=== PATIENT | male | born 1950 | race American Indian/Alaskan Native ===

== ENCOUNTER 2016-05-20 03:34 | Emergency (ER) | payer BC ==
[2016-05-20 04:24] VITALS: BP 151/90
[2016-05-20] MEDS ORDERED: DECADRON IM STA (06:31)
[2016-05-20] MEDS ORDERED: TORADOL IM ONE (06:31)
--- NOTE | 2016-05-20 06:31 | Emergency Department Report ---
Upper Extremity - HPI Chief Complaint: Extremity Injury, Upper Stated Complaint: ARM AND SHOULDER PAIN Time Seen by Provider: 05/20/16 06:26 Upper Extremity: Left Shoulder (pain and stiffness), Left Arm (pain ) Occurred When: 1 Day Mechanism: Unsure Severity: mild Symptoms: Yes Pain with Movement, No Deformity, No Limited Range of Movement, No Numbness, No Weakness, No Swelling, No Bruising/Ecchymosis, No Laceration or Abrasion Other History: Patient here reports that he was working in the yard and his left arm and shoulder became severe. He said he's had this in the past and he saw and he treated him with steroid shot and Toradol. Patient denies any trauma. Denies any chest pain or shortness of breath. No [id number] medication taken. Patient said the pain started after he yard in that he went to sleep and woke up with pain into his left shoulder. ED Review of Systems ROS: Stated complaint: ARM AND SHOULDER PAIN Other details as noted in HPI Comment: All other systems reviewed and negative Constitutional: denies: chills, fever Respiratory: no symptoms reported Cardiovascular: denies: chest pain, palpitations, edema, syncope Gastrointestinal: denies: nausea, vomiting Musculoskeletal: arthralgia. denies: back pain Skin: denies: rash Neurological: denies: headache, numbness, paresthesias, confusion, abnormal gait , vertigo ED Past Medical Hx - Past Medical History Previous Medical History?: Yes Hx Diabetes: Yes Additional medical history: gout - Surgical History Past Surgical History?: Yes Additional Surgical History: back surgery x2 - Family History Family history: diabetes, hypertension - Social History Smoking Status: Never Smoker Substance Use Type: None - Medications Home Medications: Home Medications Medication Instructions Recorded Confirmed Last Taken Type Indomethacin 50 mg PO Q8H #30 capsule 02/26/16 Unknown Rx traMADol [Ultram] 50 mg PO Q6HR PRN #20 tablet 05/20/16 Unknown Rx Upper Extremity Exam - Exam General: Vital signs noted. No distress. Alert and acting appropriately. This is a 65-year-old male well-nourished well-developed in no acute distress. Head and Torso: No HEENT Abnormality, No Neck Tenderness, No Chest/Lungs Abnormality, No Abdominal Tenderness, No Back Tenderness Shoulder Exam: Yes Normal Range of Motion in Shoulder (it's painful to move his left shoulder), No Shoulder Tenderness, No Clavicle Tenderness, No Shoulder Deformity, No AC Joint Tenderness Arm Exam: No Arm/Humerus Tenderness, No Arm Deformity Elbow: Yes Normal Range of Motion in Elbow, No Elbow Tenderness, No Elbow Deformity Forearm: No Forearm Tenderness, No Forearm Deformity, No Pain with Pronation, No Pain with Supination Wrist: Yes Normal ROM in Wrist, No Wrist Tenderness, No Wrist Deformity, No Snuffbox Tenderness, No Pain with Axial Thumb Compression Hand: Yes Normal ROM in Digit(s), No Hand Tenderness, No Hand Deformity, No Digit Tenderness, No Digit(s) Deformity, No Tendon Dysfunction CMS Exam: Yes Normal Distal Pulses, Yes Normal Capillary Refill, Yes Normal Distal Sensation, No Broken Skin ED Course Vital Signs 05/20/16 03:45 Temperature 98.1 F Pulse Rate 79 Respiratory 18 Rate Blood Pressure 151/90 [Right] O2 Sat by Pulse 100 Oximetry - Reevaluation(s) Reevaluation #1: 05/20/16 06:54 Patient was given Toradol 30 mg IM and Decadron 10 mg IM with relief of pain. ED Medical Decision Making - Medical Decision Making ED course: Patient presents to emergency room with left shoulder pain after working in the yard. He said similar incident and was evaluated. Patient was given Toradol 30 mg IM and Decadron 10 mg IM and forceps relief of pain. I discussed the patient that he needs to follow-up with orthopedic doctor to get MRI to rule out rotator cuff injury.. Patient with good color, movement, sensation in temperature to extremities. No joint deformities or erythema. Chin discharged home with prescription for Ultram which she is taken before for similar problem. Critical care attestation.: If time is entered above; I have spent that time in minutes in the direct care of this critically ill patient, excluding procedure time. ED Disposition Clinical Impression: Arthralgia of left shoulder region Disposition: DISCHARGED TO HOME OR SELFCARE Is pt being admited?: No Does the pt Need Aspirin: No Condition: Stable Instructions: Arthralgia (ED) Additional Instructions: Patient distress affected area for 72 hours. Orthopedic doctor in 2-3 days for reevaluation because he may need an MRI. Prescriptions: traMADol [Ultram] 50 mg PO Q6HR PRN #20 tablet PRN Reason: Pain Referrals: USHA MICHELLE MD [Staff Physician] - 2-3 Days PRIMARY CARE, [Primary Care Provider] - 2-3 Days Forms: Work/School Release Form(ED)
== END 2016-05-20 07:03 | disposition home or self-care (01) ==
LOC: ED 03:34
DX: M25.512 Pain in left shoulder (principal); E11.9 Type 2 diabetes mellitus without complications; M10.9 Gout, unspecified
CPT/HCPCS: 96372; 99282; J1100; J1885

== ENCOUNTER 2016-06-16 06:59 | Outpatient (CLI) | payer BC ==
--- NOTE | 2016-06-16 09:20 | XRay Report ---
Lumbar spine 4 views: History: Low back pain. Findings: Normal height of vertebral bodies. Space and device at L3-L4 interspace. Decrease in height of L4-L5 and L5-S1 interspace. Sclerotic adjacent articular surfaces with peripheral osteophytes suggestive severe degenerative changes. No fracture. Calcified abdominal aorta without aneurysm. Impression: Degenerative lumbar spine.
== END 2016-06-16 07:00 | disposition home or self-care (01) ==
LOC: XRAY 06:59
PROVIDERS: ATTEND Internal Medicine
DX: M47.896 Other spondylosis, lumbar region (principal); M25.78 Osteophyte, vertebrae
CPT/HCPCS: 72110

== ENCOUNTER 2018-06-13 12:46 | Emergency (ER) | payer BC ==
--- NOTE | 2018-06-13 12:58 | Emergency Department Report ---
Blank Doc - Documentation Documentation: This is a 67-year-old male that presents with HTN. Stated has been placed on new medications with b/p worsening. Denies any symptoms. This initial assessment/diagnostic orders/clinical plan/treatment(s) is/are subject to change based on patient's health status, clinical progression and re- assessment by fellow clinical providers in the ED. Further treatment and workup at subsequent clinical providers discretion. Patient/guardians urged not to elope from the ED as their condition may be serious if not clinically assessed and managed. Initial orders include: 1- Patient sent to [facility] for further evaluation and treatment
[2018-06-13 12:59] VITALS: BP 185/101
== END 2018-06-13 13:00 | disposition left against medical advice (07) ==
LOC: ED 12:46
DX: I10 Essential (primary) hypertension (principal); Z53.21 Procedure and treatment not carried out due to patient leaving prior to being seen by health care provider

== ENCOUNTER 2019-01-31 01:37 | Emergency (ER) | payer BC ==
--- NOTE | 2019-01-31 03:14 | Emergency Department Report ---
ED General Adult HPI - General Chief complaint: High BP Stated complaint: BP Time Seen by Provider: 01/31/19 02:59 Source: patient Mode of arrival: Ambulatory Limitations: No Limitations - History of Present Illness Initial comments: Patient is a 68-year-old male up since emergency room with complaints of elevated blood pressure. Patient states his blood pressure at home was 190/94. Patient's blood pressure in triage today was 209/113. Patient denies headache. Patient denies blurry vision. Patient denies chest pain. Patient denies shortness of breath. Patient denies missing medications. Patient states he takes clonidine 0.2 mg twice a day, losartan 100/25 daily, and Coreg 25 mg twice a day. Patient states his blood pressure is normally less than 150. Patient denies increased salt intake. Patient states he takes in enough water. pt denies kidney disease. Patient states he had his labs checked 4 days ago and were normal -: Sudden Consistency: constant Improves with: medication, rest Worsens with: none Associated Symptoms: denies other symptoms. denies: confusion, chest pain, cough, diaphoresis, fever/chills, headaches, loss of appetite, malaise, nausea/vomiting, rash, seizure, shortness of breath, syncope, weakness Treatments Prior to Arrival: none - Related Data Previous Rx's Medication Instructions Recorded Last Taken Type Indomethacin 50 mg PO Q8H #30 capsule 02/26/16 Unknown Rx traMADoL [Ultram] 50 mg PO Q6HR PRN #20 tablet 05/20/16 Unknown Rx Amlodipine Besylate [Norvasc] 5 mg PO DAILY #15 tablet 01/31/19 Unknown Rx Allergies Allergy/AdvReac Type Severity Reaction Status Date / Time No Known Allergies Allergy Verified 07/05/18 20:04 ED Review of Systems ROS: Stated complaint: BP Other details as noted in HPI Constitutional: denies: chills, fever Eyes: denies: eye pain, eye discharge, vision change ENT: denies: ear pain, throat pain Respiratory: denies: cough, shortness of breath, wheezing Cardiovascular: denies: chest pain, palpitations Endocrine: no symptoms reported Gastrointestinal: denies: abdominal pain, nausea, diarrhea Genitourinary: denies: urgency, dysuria Musculoskeletal: denies: back pain, joint swelling, arthralgia Skin: denies: rash, lesions Neurological: denies: headache, weakness, paresthesias Psychiatric: denies: anxiety, depression Hematological/Lymphatic: denies: easy bleeding, easy bruising ED Past Medical Hx - Past Medical History Previous Medical History?: Yes Hx Hypertension: Yes Hx Diabetes: Yes Hx Renal Disease: No Additional medical history: gout, hyperlipidemia - Surgical History Past Surgical History?: Yes Additional Surgical History: back surgery x2 - Family History Family history: no significant - Social History Smoking Status: Never Smoker Substance Use Type: None - Medications Home Medications: Home Medications Medication Instructions Recorded Confirmed Last Taken Type Indomethacin 50 mg PO Q8H #30 capsule 02/26/16 Unknown Rx traMADoL [Ultram] 50 mg PO Q6HR PRN #20 tablet 05/20/16 Unknown Rx Amlodipine Besylate [Norvasc] 5 mg PO DAILY #15 tablet 01/31/19 Unknown Rx ED Physical Exam - General Limitations: No Limitations General appearance: alert, in no apparent distress - Head Head exam: Present: atraumatic, normocephalic - Eye Eye exam: Present: normal appearance - ENT ENT exam: Present: mucous membranes moist - Neck Neck exam: Present: normal inspection - Respiratory Respiratory exam: Present: normal lung sounds bilaterally. Absent: respiratory distress, wheezes, rales - Cardiovascular Cardiovascular Exam: Present: regular rate, normal rhythm. Absent: systolic murmur, diastolic murmur, rubs, gallop - GI/Abdominal GI/Abdominal exam: Present: soft, normal bowel sounds. Absent: distended, tenderness, guarding - Rectal Rectal exam: Present: deferred - Extremities Exam Extremities exam: Present: normal inspection - Back Exam Back exam: Present: normal inspection - Neurological Exam Neurological exam: Present: alert, oriented X3 - Psychiatric Psychiatric exam: Present: normal affect, normal mood - Skin Skin exam: Present: warm, dry, intact, normal color. Absent: rash ED Course Vital Signs 01/31/19 01/31/19 01/31/19 01:43 02:45 03:00 Temperature 98.5 F 98.5 F Pulse Rate 71 81 Respiratory 20 16 Rate Blood Pressure 209/113 176/95 Blood Pressure 193/105 [Left] O2 Sat by Pulse 98 99 98 Oximetry 01/31/19 03:30 Temperature Pulse Rate Respiratory Rate Blood Pressure 168/92 Blood Pressure [Left] O2 Sat by Pulse 99 Oximetry - Reevaluation(s) Reevaluation #1: I discussed clinical findings patient. Patient's blood pressure checked multiple times and is still elevated. Patient will be given a prescription for Norvasc. Patient is not quire further evaluation ER. Patient given discharge instructions. Patient voiced understanding of discharge instructions. Patient agrees with plan of care. 01/31/19 03:20 ED Medical Decision Making - Medical Decision Making Patient is a 68-year-old male that presents emergency room with complaints of elevated blood pressure. Patient's blood pressure initially considered a hypertensive emergency. Patient blood pressure improved with rest. Patient given a new prescription for Norvasc. Patient to continue OTHER medications. 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 - Differential Diagnosis high blood pressure. Increase salt intake. Critical care attestation.: If time is entered above; I have spent that time in minutes in the direct care of this critically ill patient, excluding procedure time. ED Disposition Clinical Impression: Essential hypertension, Hypertensive urgency Disposition: DC-01 TO HOME OR SELFCARE Is pt being admited?: No Does the pt Need Aspirin: No Condition: Stable Instructions: Heart Healthy Diet (ED), How to Take a Blood Pressure (ED), DASH Eating Plan (ED), Low Sodium Diet (ED), Hypertensive Crisis (ED), Hypertension (ED) Additional Instructions: pt To follow-up with primary care in 2-3 days. Patient to return to ER if condition worsens. Patient take meds as directed. Patient to continue all other medications as directed by his other physicians. Patient to monitor blood pressure and keep a blood pressure log. Prescriptions: Amlodipine Besylate [Norvasc] 5 mg PO DAILY #15 tablet Referrals: PRIMARY CARE, [Primary Care Provider] - 3-5 Days Time of Disposition: 03:47
[2019-01-31 04:04] VITALS: BP 168/92
== END 2019-01-31 04:00 | disposition home or self-care (01) ==
LOC: ED 01:37
DX: I16.0 Hypertensive urgency (principal); I10 Essential (primary) hypertension; E11.9 Type 2 diabetes mellitus without complications; E78.5 Hyperlipidemia, unspecified
CPT/HCPCS: 99281

== ENCOUNTER 2019-10-17 03:14 | Emergency (ER) | payer BC ==
[2019-10-17] MEDS ORDERED: cloNIDine 0.2 MG TAB PO ONE (04:17)
--- NOTE | 2019-10-17 04:17 | Emergency Department Report ---
ED General Adult HPI - General Chief complaint: High BP Stated complaint: HIGH BP PUI?: No Time Seen by Provider: 10/17/19 04:02 Source: patient Mode of arrival: Ambulatory Limitations: No Limitations - History of Present Illness Initial comments: Patient is a 69-year-old male that presents emergency room with complaints of elevated blood pressure. Patient states he missed a dose of his blood pressure medication his blood pressure shot up. Patient states his blood pressure is normally 130/80. Patient states he is currently taking carvedilol, clonidine and Diovan. Patient states he is compliant with his medications. Patient denies headache. Patient denies blurry vision. Patient was just concerned about the blood pressure readings. Patient denies chest pain. Patient denies shortness of breath. Patient denies dizziness. Patient denies lightheadedness. Patient denies loss of consciousness. Patient denies syncope. Patient denies recent travel. Patient denies recent international travel. Patient denies exposure to the novel coronavirus. Patient denies sick contacts. Patient denies fever and chills. Patient denies cough. Patient denies diarrhea. Patient denies coming in contact with anybody with symptoms of the novel coronavirus. -: Sudden Consistency: constant Improves with: medication, rest Worsens with: movement Associated Symptoms: denies other symptoms. denies: confusion, chest pain, cough, diaphoresis, fever/chills, headaches, loss of appetite, malaise, nausea/vomiting, rash, seizure, shortness of breath, syncope, weakness Treatments Prior to Arrival: none - Related Data Previous Rx's Medication Instructions Recorded Last Taken Type Indomethacin 50 mg PO Q8H #30 capsule 02/26/16 Unknown Rx traMADoL [Ultram] 50 mg PO Q6HR PRN #20 tablet 05/20/16 Unknown Rx Amlodipine Besylate [Norvasc] 5 mg PO DAILY #15 tablet 01/31/19 Unknown Rx Allergies Allergy/AdvReac Type Severity Reaction Status Date / Time No Known Allergies Allergy Verified 07/05/18 20:04 ED Review of Systems ROS: Stated complaint: HIGH BP Other details as noted in HPI Constitutional: denies: chills, fever Eyes: denies: eye pain, eye discharge, vision change ENT: denies: ear pain, throat pain Respiratory: denies: cough, shortness of breath, wheezing Cardiovascular: denies: chest pain, palpitations Endocrine: no symptoms reported Gastrointestinal: denies: abdominal pain, nausea, diarrhea Genitourinary: denies: urgency, dysuria Musculoskeletal: denies: back pain, joint swelling, arthralgia Skin: denies: rash, lesions Neurological: denies: headache, weakness, paresthesias Psychiatric: denies: anxiety, depression Hematological/Lymphatic: denies: easy bleeding, easy bruising ED Past Medical Hx - Past Medical History Previous Medical History?: Yes Hx Hypertension: Yes Hx Diabetes: Yes Hx Renal Disease: No Additional medical history: gout, hyperlipidemia - Surgical History Past Surgical History?: Yes Additional Surgical History: back surgery x2 - Family History Family history: no significant - Social History Smoking Status: Never Smoker Substance Use Type: None - Medications Home Medications: Home Medications Medication Instructions Recorded Confirmed Last Taken Type Indomethacin 50 mg PO Q8H #30 capsule 02/26/16 Unknown Rx traMADoL [Ultram] 50 mg PO Q6HR PRN #20 tablet 05/20/16 Unknown Rx Amlodipine Besylate [Norvasc] 5 mg PO DAILY #15 tablet 01/31/19 Unknown Rx ED Physical Exam - General Limitations: No Limitations General appearance: alert, in no apparent distress - Head Head exam: Present: atraumatic, normocephalic - Eye Eye exam: Present: normal appearance, PERRL Pupils: Present: normal accommodation - ENT ENT exam: Present: mucous membranes moist - Neck Neck exam: Present: normal inspection - Respiratory Respiratory exam: Present: normal lung sounds bilaterally. Absent: respiratory distress - Cardiovascular Cardiovascular Exam: Present: regular rate, normal rhythm. Absent: systolic murmur, diastolic murmur, rubs, gallop - GI/Abdominal GI/Abdominal exam: Present: soft, normal bowel sounds - Rectal Rectal exam: Present: deferred - Extremities Exam Extremities exam: Present: normal inspection - Back Exam Back exam: Present: normal inspection - Neurological Exam Neurological exam: Present: alert, oriented X3 - Psychiatric Psychiatric exam: Present: normal affect, normal mood - Skin Skin exam: Present: warm, dry, intact, normal color. Absent: rash ED Course Vital Signs 10/17/19 10/17/19 03:19 04:24 Temperature 98.0 F 98.2 F Pulse Rate 81 79 Respiratory 20 15 Rate Blood Pressure 204/101 197/98 Blood Pressure 197/98 [Left] O2 Sat by Pulse 98 100 Oximetry - Reevaluation(s) Reevaluation #1: Initial valuation done. Patient's blood pressure is currently 197/97. Patient will be given clonidine 0.2 mg. 10/17/19 04:17 Reevaluation #2: Patient's current blood pressure is 153/87. Patient will be discharged home. I discussed all results and clinical findings with patient. I discussed plan of care with patient. Patient agrees with plan of care. Patient is stable for discharge. Patient will be discharged home. Patient given discharge instructions. Patient voiced understanding of discharge instructions. 10/17/19 04:40 ED Medical Decision Making - Medical Decision Making Patient is a 69-year-old male that presents emergency room with elevated blood pressure. Patient missed a dose of his carvedilol and his blood pressure shot up. Patient came to the emergency room because he was nervous about how high his blood pressure went up to. Patient's blood pressure upon arrival was 200 systolic. Patient blood pressure monitor. Patient's blood pressure is 197/97 patient was given patient's blood pressure improved. Patient's blood pressure is more tolerable and the patient was discharged home. Patient not require any further investigation or further emergency medical services. Patient stable for discharge. Patient discharged home. - Differential Diagnosis Missed dose, hypertension, increased salt intake. Critical care attestation.: If time is entered above; I have spent that time in minutes in the direct care of this critically ill patient, excluding procedure time. ED Disposition Clinical Impression: Hypertension Qualifiers: Hypertension type: essential hypertension Qualified Code(s): I10 - Essential (primary) hypertension Disposition: DC-01 TO HOME OR SELFCARE Is pt being admited?: No Does the pt Need Aspirin: No Condition: Stable Instructions: Heart Healthy Diet (ED), How to Take a Blood Pressure (ED), DASH Eating Plan (ED), Low Sodium Diet (ED), Hypertension (ED) Additional Instructions: Patient to follow-up with primary care in 2 to 3 days. Patient to follow-up with cardiology in 2 to 3 days. Patient to rest. Patient to increase water. Patient to avoid strenuous exercise or heavy lifting until cleared by cardiac specialist. Patient to keep a blood pressure log. Patient to monitor blood pressure at home. Patient to eat a low-salt, heart healthy diet. Patient to continue medications. Patient to return to the ER if condition worsens, changes or new symptoms arise. Referrals: PRIMARY CARE, [Primary Care Provider] - 2-3 Days Time of Disposition: 04:35
[2019-10-17 05:09] VITALS: BP 151/85
== END 2019-10-17 05:09 | disposition home or self-care (01) ==
LOC: ED 03:14
DX: I10 Essential (primary) hypertension (principal); E11.9 Type 2 diabetes mellitus without complications; Z79.899 Other long term (current) drug therapy
CPT/HCPCS: 99282

== ENCOUNTER 2020-12-01 18:42 | Emergency (ER) | payer BC ==
[2020-12-01] MEDS ORDERED: hydrALAZINE 25 MG TAB PO ONE (20:44)
--- NOTE | 2020-12-01 22:10 | Emergency Department Report ---
ED General Adult HPI - General Chief complaint: High BP Stated complaint: HIGH BLOOD PRESSURE Source: patient Mode of arrival: Ambulatory Limitations: No Limitations - History of Present Illness Initial comments: Patient is a 70-year-old -[place] male with a history of hypertension, hyperlipidemia, gout and nga-[id number]-qahofcbae diabetes who presented to the ED with elevated blood pressure. Patient states that he has previously taken losartan-HCTZ 325 mg - 25 mg and that his blood pressure is always been well controlled until about 2 weeks ago when his medications were changed. Patient states that since new medications were added, including clonidine 0.3 mg patch and nifedipine 30 mg XR, his blood pressures continue to be in the 190s systolic, and that it got worse in the last 2 days. Patient states that the symptoms have worsened in the last 3 days. Patient denies chest pain, shortness of breath, dizziness, nausea, vomiting, headache, palpitations, abdominal pain, neck pain, head injury, fall or numbness and tingling or weakness of upper and lower extremities bilaterally and syncope. MD Complaint: Elevated blood, new blood pressure medication changes -: Sudden, days(s) (3) Location: head Radiation: non-radiation Quality: dull Consistency: constant Improves with: none Worsens with: none Associated Symptoms: denies other symptoms. denies: confusion, chest pain, cough, diaphoresis, fever/chills, headaches, loss of appetite, malaise, nausea/vomiting, rash, shortness of breath, syncope, weakness Treatments Prior to Arrival: none - Related Data Previous Rx's Medication Instructions Recorded Last Taken Type Indomethacin 50 mg PO Q8H #30 capsule 02/26/16 Unknown Rx traMADoL [Ultram] 50 mg PO Q6HR PRN #20 tablet 05/20/16 Unknown Rx Amlodipine Besylate [Norvasc] 5 mg PO DAILY #15 tablet 01/31/19 Unknown Rx Allergies Allergy/AdvReac Type Severity Reaction Status Date / Time No Known Allergies Allergy Verified 07/05/18 20:04 ED Review of Systems ROS: Stated complaint: HIGH BLOOD PRESSURE Other details as noted in HPI Constitutional: denies: chills, fever Eyes: denies: eye pain, eye discharge, vision change ENT: denies: ear pain, throat pain, dental pain, hearing loss, congestion Respiratory: denies: cough, shortness of breath, wheezing Cardiovascular: denies: chest pain, palpitations Endocrine: no symptoms reported Gastrointestinal: denies: abdominal pain, nausea, vomiting, diarrhea, hematemesis, hematochezia Genitourinary: denies: urgency, dysuria Musculoskeletal: denies: back pain, joint swelling, arthralgia Skin: denies: rash, lesions Neurological: denies: headache, weakness, paresthesias Psychiatric: denies: anxiety, depression Hematological/Lymphatic: denies: easy bleeding, easy bruising ED Past Medical Hx - Past Medical History Previous Medical History?: Yes Hx Hypertension: Yes Hx Diabetes: Yes Hx Renal Disease: No Additional medical history: gout, hyperlipidemia - Surgical History Past Surgical History?: Yes Additional Surgical History: back surgery x2 - Social History Smoking Status: Never Smoker Substance Use Type: None - Medications Home Medications: Home Medications Medication Instructions Recorded Confirmed Last Taken Type Indomethacin 50 mg PO Q8H #30 capsule 02/26/16 Unknown Rx traMADoL [Ultram] 50 mg PO Q6HR PRN #20 tablet 05/20/16 Unknown Rx Amlodipine Besylate [Norvasc] 5 mg PO DAILY #15 tablet 01/31/19 Unknown Rx ED Physical Exam - General Limitations: No Limitations General appearance: alert, in no apparent distress - Head Head exam: Present: atraumatic, normocephalic, normal inspection - Eye Eye exam: Present: normal appearance, PERRL, EOMI Pupils: Present: normal accommodation - ENT ENT exam: Present: normal exam, normal orophraynx, mucous membranes moist, TM's normal bilaterally, normal external ear exam - Neck Neck exam: Present: normal inspection, full ROM - Respiratory Respiratory exam: Present: normal lung sounds bilaterally. Absent: respiratory distress, wheezes, rales, rhonchi, chest wall tenderness, accessory muscle use, decreased breath sounds, prolonged expiratory - Cardiovascular Cardiovascular Exam: Present: regular rate, normal rhythm, normal heart sounds. Absent: systolic murmur, diastolic murmur, rubs, gallop - GI/Abdominal GI/Abdominal exam: Present: soft, normal bowel sounds. Absent: tenderness, guarding, rebound, rigid, hyperactive bowel sounds, hypoactive bowel sounds, organomegaly, mass - Extremities Exam Extremities exam: Present: normal inspection, full ROM, normal capillary refill - Back Exam Back exam: Present: normal inspection, full ROM. Absent: tenderness, CVA tenderness (R), CVA tenderness (L), muscle spasm, paraspinal tenderness - Neurological Exam Neurological exam: Present: alert, oriented X3, CN II-XII intact, normal gait, reflexes normal - Psychiatric Psychiatric exam: Present: normal affect, normal mood - Skin Skin exam: Present: warm, dry, intact, normal color. Absent: rash ED Course Vital Signs 12/01/20 12/01/20 12/01/20 19:04 20:18 21:00 Temperature 98.1 F Pulse Rate 88 Respiratory 18 Rate Blood Pressure 199/106 224/116 Blood Pressure 227/128 [Right] O2 Sat by Pulse 98 Oximetry 12/01/20 12/01/20 12/01/20 21:03 21:19 21:35 Temperature Pulse Rate 81 Respiratory Rate Blood Pressure 224/116 186/101 192/93 Blood Pressure [Right] O2 Sat by Pulse Oximetry 12/01/20 12/01/20 21:50 22:05 Temperature Pulse Rate Respiratory Rate Blood Pressure 176/97 183/87 Blood Pressure [Right] O2 Sat by Pulse Oximetry ED Medical Decision Making - Medical Decision Making This is a 70-year-old -[place] male with a history of hypertension, hyperlipidemia, gout and [id number]-ckpewdzla diabetes who presented to the ED with elevated blood pressure. Patient states that he has previously taken losartan-HCTZ 325 mg - 25 mg and that his blood pressure is always been well controlled until about 2 weeks ago when his medications were changed. Patient states that since new medications were added, including clonidine 0.3 mg patch and nifedipine 30 mg XR, his blood pressures continue to be in the 190s systolic, and that it got worse in the last 2 days. Patient states that the symptoms have worsened in the last 3 days. In the ED, patient is alert and oriented by age and is not in any distress. Patient is however hypertensive in triage, anxious and afebrile. Patient was treated in the ED for hypertension with hydralazine 50 mg p.o. x1. On reevaluation, hypertension improved and the patient will discharge home and advised to follow-up with his primary care physician in 3 to 5 days for reevaluation or return to the ED immediately if symptoms get worse. - Differential Diagnosis Uncontrolled hypertension; anxiety Critical care attestation.: If time is entered above; I have spent that time in minutes in the direct care of this critically ill patient, excluding procedure time. ED Disposition Clinical Impression: Uncontrolled stage 2 hypertension Disposition: 01 HOME / SELF CARE / HOMELESS Is pt being admited?: No Does the pt Need Aspirin: No Condition: Stable Instructions: Hypertension, Adult, [id number], Hypertension (ED) Additional Instructions: Follow-up with your primary care physician in the next 24 to 48 hours for further evaluation. Return to the ED immediately if symptoms get worse. Referrals: MARIANO WILD MD [Staff Physician] - 3-5 Days Time of Disposition: 22:25 Print Language: SPANISH
[2020-12-02 01:28] VITALS: BP 136/72
== END 2020-12-01 23:35 | disposition home or self-care (01) ==
LOC: ED 18:42
DX: I10 Essential (primary) hypertension (principal); E11.8 Type 2 diabetes mellitus with unspecified complications; M10.9 Gout, unspecified; E78.5 Hyperlipidemia, unspecified; Z98.890 Other specified postprocedural states
CPT/HCPCS: 99282

== ENCOUNTER 2021-03-01 07:56 | Emergency (ER) | payer BC ==
[2021-03-01] MEDS ORDERED: KETOROLAC 30 MG/1 ML INJ IM ONE (08:15)
[2021-03-01] MEDS ORDERED: dexAMETHasone 20 MG/5 ML VIAL IV ONE (08:15)
--- NOTE | 2021-03-01 08:19 | Emergency Department Report ---
ED Extremity Problem HPI - General Chief complaint: Extremity Problem,Nontraumatic Stated complaint: GOUT RIGHT FOOT/TOE Time Seen by Provider: 03/01/21 08:12 Source: patient Mode of arrival: Ambulatory Limitations: No Limitations - History of Present Illness Initial comments: Yossi GARCIA Complaint: joint swelling, joint paint Onset/Timin -: days(s) Location: right, toe (great) History of Same: Yes -: Yes arthralgia Radiation: proximal Severity scale (0 -10): 10 Quality: burning, stabbing, sharp Consistency: constant Improves with: nothing Worsens with: weight bearing, walking, palpation Associated Symptoms: denies other symptoms - Related Data Previous Rx's Medication Instructions Recorded Last Taken Type Amlodipine Besylate [Norvasc] 5 mg PO DAILY #15 tablet 01/31/19 Unknown Rx Indomethacin 50 mg PO Q8H #30 capsule 03/01/21 Unknown Rx predniSONE [Deltasone] 40 mg PO QDAY #10 tab 03/01/21 Unknown Rx traMADoL [Ultram 50 MG tab] 50 mg PO Q6HR PRN #20 tablet 03/01/21 Unknown Rx Allergies Allergy/AdvReac Type Severity Reaction Status Date / Time No Known Allergies Allergy Verified 07/05/18 20:04 ED Review of Systems ROS: Stated complaint: GOUT RIGHT FOOT/TOE Other details as noted in HPI Comment: All other systems reviewed and negative ED Past Medical Hx - Past Medical History Hx Hypertension: Yes Hx Diabetes: Yes Hx Renal Disease: No Additional medical history: gout, hyperlipidemia - Surgical History Additional Surgical History: back surgery x2 - Social History Smoking Status: Never Smoker Substance Use Type: None - Medications Home Medications: Home Medications Medication Instructions Recorded Confirmed Last Taken Type Amlodipine Besylate [Norvasc] 5 mg PO DAILY #15 tablet 01/31/19 Unknown Rx Indomethacin 50 mg PO Q8H #30 capsule 03/01/21 Unknown Rx predniSONE [Deltasone] 40 mg PO QDAY #10 tab 03/01/21 Unknown Rx traMADoL [Ultram 50 MG tab] 50 mg PO Q6HR PRN #20 tablet 03/01/21 Unknown Rx ED Physical Exam - General Limitations: No Limitations General appearance: alert, in no apparent distress - Head Head exam: Present: atraumatic, normocephalic - Eye Eye exam: Present: normal appearance - ENT ENT exam: Present: mucous membranes moist - Neck Neck exam: Present: normal inspection, full ROM - Respiratory Respiratory exam: Present: normal lung sounds bilaterally. Absent: respiratory distress - Cardiovascular Cardiovascular Exam: Present: regular rate, normal rhythm. Absent: systolic murmur, diastolic murmur, rubs, gallop - GI/Abdominal GI/Abdominal exam: Present: soft, normal bowel sounds - Rectal Rectal exam: Present: deferred - Extremities Exam Extremities exam: Present: normal inspection - Expanded Lower Extremity Exam Right Hip exam: Present: normal inspection, full ROM Upper Leg exam: Present: normal inspection, full ROM Knee exam: Present: normal inspection, full ROM Lower Leg exam: Present: normal inspection, full ROM Ankle exam: Present: normal inspection, full ROM Foot/Toe exam: Present: full ROM, tenderness, swelling, erythema Neuro vascular tendon exam: Present: no vascular compromise - Back Exam Back exam: Present: normal inspection - Neurological Exam Neurological exam: Present: alert, oriented X3, abnormal gait - Psychiatric Psychiatric exam: Present: normal affect, normal mood - Skin Skin exam: Present: warm, dry, intact, normal color. Absent: rash ED Course Vital Signs 03/01/21 08:00 Temperature 98.3 F Pulse Rate 81 Respiratory 16 Rate Blood Pressure 182/95 O2 Sat by Pulse 99 Oximetry Critical care attestation.: If time is entered above; I have spent that time in minutes in the direct care of this critically ill patient, excluding procedure time. ED Disposition Clinical Impression: Gout Disposition: 01 HOME / SELF CARE / HOMELESS Is pt being admited?: No Does the pt Need Aspirin: No Condition: Stable Instructions: Low-Purine Eating Plan Additional Instructions: Take medications as prescribed. Follow up with your medication. Prescriptions: predniSONE [Deltasone] 40 mg PO QDAY #10 tab Indomethacin 50 mg PO Q8H #30 capsule traMADoL [Ultram 50 MG tab] 50 mg PO Q6HR PRN #20 tablet PRN Reason: Pain Referrals: Yor,Primary care provider [Other] - 3-5 Days Time of Disposition: 08:24
[2021-03-01 09:40] VITALS: BP 161/88
== END 2021-03-01 09:16 | disposition home or self-care (01) ==
LOC: ED 07:56
DX: M10.9 Gout, unspecified (principal)
CPT/HCPCS: 96372; 96374; 99282; J1100; J1885

== ENCOUNTER 2021-03-17 21:12 | Emergency (ER) | payer BC ==
[2021-03-17] MEDS ORDERED: cloNIDine 0.1 MG TAB PO ONE (23:19)
--- NOTE | 2021-03-18 | Emergency Department Report ---
ED General Adult HPI - General Chief complaint: High BP Stated complaint: HIGH BP Time Seen by Provider: 03/17/21 23:06 Source: patient Mode of arrival: Ambulatory Limitations: No Limitations - History of Present Illness Initial comments: 70-year-old male with a past medical history of diabetes, hypertension, gout, hyperlipidemia presented hospital complaining about asymptomatic hypertension since he was diagnosed with COVID yesterday. Patient checks his blood pressure daily states systolic is typically 130s to 140s. Yesterday he went to [facility] clinic and his blood pressure is 173/119. He was swabbed and tested positive for COVID. He was discharged on azithromycin and prednisone. Patient states his blood pressure has been elevated since his COVID diagnosis. He denies headache, chest pain, or shortness of breath. He is compliant with his blood pressure medications which he takes every morning. His second steward is Dr. Kaplan with [facility]. Patient's current blood pressure medications include Carvedilol 25 mg twice daily Chlorthalidone 50 mg daily a.m. Valsartan 320 mg every morning - Related Data Previous Rx's Medication Instructions Recorded Last Taken Type Amlodipine Besylate [Norvasc] 5 mg PO DAILY #15 tablet 01/31/19 Unknown Rx Indomethacin 50 mg PO Q8H #30 capsule 03/01/21 Unknown Rx predniSONE [Deltasone] 40 mg PO QDAY #10 tab 03/01/21 Unknown Rx traMADoL [Ultram 50 MG tab] 50 mg PO Q6HR PRN #20 tablet 03/01/21 Unknown Rx hydrALAZINE [Apresoline TAB] 10 mg PO Q8H #30 tab 03/18/21 Unknown Rx Allergies Allergy/AdvReac Type Severity Reaction Status Date / Time No Known Allergies Allergy Verified 07/05/18 20:04 ED Review of Systems ROS: Stated complaint: HIGH BP Other details as noted in HPI Comment: All other systems reviewed and negative ED Past Medical Hx - Past Medical History Hx Hypertension: Yes Hx Diabetes: Yes Hx Renal Disease: No Additional medical history: gout, hyperlipidemia - Surgical History Past Surgical History?: Yes Additional Surgical History: back surgery x2 - Social History Smoking Status: Never Smoker Substance Use Type: None - Medications Home Medications: Home Medications Medication Instructions Recorded Confirmed Last Taken Type Amlodipine Besylate [Norvasc] 5 mg PO DAILY #15 tablet 01/31/19 Unknown Rx Indomethacin 50 mg PO Q8H #30 capsule 03/01/21 Unknown Rx predniSONE [Deltasone] 40 mg PO QDAY #10 tab 03/01/21 Unknown Rx traMADoL [Ultram 50 MG tab] 50 mg PO Q6HR PRN #20 tablet 03/01/21 Unknown Rx hydrALAZINE [Apresoline TAB] 10 mg PO Q8H #30 tab 03/18/21 Unknown Rx ED Physical Exam - General Limitations: No Limitations - Other Other exam information: General: No acute distress Head: Atraumatic Eyes: normal appearance ENT: Moist mucous membranes Neck: Normal appearance, no midline tenderness Chest: Clear to auscultation bilaterally CV: Regular rate and rhythm Abdomen: Soft, normal bowel sounds, nontender, nondistended, no rebound or guarding Back: Normal inspection Extremity: Normal inspection, full range of motion Neuro: Alert O x 3, no facial asymmetry, speech clear, no gross motor sensory deficit Psych: Appropriate behavior Skin: No rash ED Course Vital Signs 03/17/21 03/18/21 21:17 00:56 Temperature 98.1 F Pulse Rate 83 83 Respiratory 18 18 Rate Blood Pressure 200/90 172/93 [Right] O2 Sat by Pulse 99 97 Oximetry - Consultations Consultation #1: 03/18/21 00: 35 call center nurse second steward for [facility] Dr. Ana medrano ED Medical Decision Making - Lab Data Result diagrams: 03/17/21 23:37 03/17/21 23:37 Lab Results 03/17/21 03/17/21 Range/Units 23:37 23:37 WBC 10.7 (4.5-11.0) K/mm3 RBC 5.02 (3.65-5.03) M/mm3 Hgb 12.5 (11.8-15.2) gm/dl Hct 41.5 (35.5-45.6) % MCV 83 L (84-94) fl MCH 25 L (28-32) pg MCHC 30 L (32-34) % RDW 15.4 H (13.2-15.2) % Plt Count 354 (140-440) K/mm3 Lymph % (Auto) 20.2 (13.4-35.0) % Gilmer % (Auto) 6.3 (0.0-7.3) % Eos % (Auto) 0.7 (0.0-4.3) % Baso % (Auto) 1.0 (0.0-1.8) % Lymph # (Auto) 2.1 (1.2-5.4) K/mm3 Gilmer # (Auto) 0.7 (0.0-0.8) K/mm3 Eos # (Auto) 0.1 (0.0-0.4) K/mm3 Baso # (Auto) 0.1 (0.0-0.1) K/mm3 Seg Neutrophils % 71.8 H (40.0-70.0) % Seg Neutrophils # 7.7 (1.8-7.7) K/mm3 Sodium 143 (137-145) mmol/L Potassium 4.7 (3.6-5.0) mmol/L Chloride 107.1 H (98-107) mmol/L Carbon Dioxide 24 (22-30) mmol/L Anion Gap 17 mmol/L BUN 22 H (9-20) mg/dL Creatinine 1.0 (0.8-1.3) mg/dL Estimated GFR > 60 ml/min BUN/Creatinine Ratio 22 % Glucose 227 H (75-100) mg/dL Calcium 8.9 (8.4-10.2) mg/dL - Medical Decision Making 70-year-old male presents to the hospital asymptomatic hypertension without any signs of endorgan damage. Decreasing patient's BP after clonidine I attempted to contact patient's cardiology group as a courtesy for med recommendations however no respone to page in 30 min. I will add hydralazine 10mg to patient's blood pressure regimen and encourage outpatient follow-up and to contact his cardiology group or pMD tomorrow for possible medication adjustment Critical Care Time: No Critical care attestation.: If time is entered above; I have spent that time in minutes in the direct care of this critically ill patient, excluding procedure time. ED Disposition Clinical Impression: Asymptomatic hypertension Disposition: 01 HOME / SELF CARE / HOMELESS Is pt being admited?: No Does the pt Need Aspirin: No Condition: Stable Instructions: Hypertension (ED), Hypertension, Adult, [id number] Additional Instructions: Take the medication as prescribed. Continue to monitor your blood pressure. Follow-up with your primary care doctor or second steward for further medication adjustment. Return if symptoms worsen as indicated by your discharge instructions. Prescriptions: hydrALAZINE [Apresoline TAB] 10 mg PO Q8H #30 tab Referrals: BERTA MOSS MD [Primary Care Provider] - 3-5 Days Time of Disposition: 01:06
[2021-03-18 00:09] LABS: BUN/Creatinine Ratio 22; Blood Urea Nitrogen 22 mg/dL (9-20); Calcium 8.9 mg/dL (8.4-10.2); Hemolysis Index 8
[2021-03-18 00:36] LABS: Basophils # (Auto) 0.1 K/mm3 (0.0-0.1); Eosinophils # (Auto) 0.1 K/mm3 (0.0-0.4); Eosinophils % (Auto) 0.7 % (0.0-4.3); Lymphocytes # (Auto) 2.1 K/mm3 (1.2-5.4); Lymphocytes % (Auto) 20.2 % (13.4-35.0); Mean Corpuscular HGB Conc 30 % (32-34); Mean Corpuscular Volume 83 fl (84-94); Monocytes # (Auto) 0.7 K/mm3 (0.0-0.8); Monocytes % (Auto) 6.3 % (0.0-7.3); Platelet Count 354 K/mm3 (140-440); Red Blood Count 5.02 M/mm3 (3.65-5.03); Red Cell Distribution Width 15.4 % (13.2-15.2)
[2021-03-18 00:38] LABS: Hematocrit 41.5 % (35.5-45.6); Hemoglobin 12.5 gm/dl (11.8-15.2)
[2021-03-18 01:11] VITALS: BP 172/93
== END 2021-03-18 01:40 | disposition home or self-care (01) ==
LOC: ED 21:12
DX: I10 Essential (primary) hypertension (principal); E11.8 Type 2 diabetes mellitus with unspecified complications
CPT/HCPCS: 36415; 80048; 85025; 99283